=== PATIENT | female | born 1980 | race Caucasian/White ===

== ENCOUNTER 2016-09-12 14:35 | Emergency (ER) | payer OTHER ==
--- NOTE | 2016-09-12 18:38 | DIAGNOSTIC IMAGING REPORT ---
PROCEDURE: CT ABD/PELVIS WITH CONTRAST INDICATION: Abdominal pain and diarrhea. TECHNIQUE: 75 ml of Isovue 300 were injected intravenously and axial images were obtained of the entire abdomen and pelvis with sagittal and coronal reformations. (One half-dose contrast given due to borderline GFR 49). COMPARISON: Comparison made to CT abdomen pelvis on 10/18/2006. FINDINGS: ABDOMEN: Gallbladder, liver, spleen, pancreas, kidneys, and aorta are normal. Bowel pattern is normal, including appendix. PELVIS: Uterus and adnexal structures are normal. No evidence of free fluid. IMPRESSION: 1. Negative CT abdomen and pelvis. 2. Findings discussed with Dr. Serge Pickens. All CT scans at this facility use dose modulation, iterative reconstruction, and/or weight-based dosing when appropriate to reduce radiation dose to as low as reasonably achievable.
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
--- NOTE | 2016-09-12 18:59 | ED ORDER SUMMARY ---
..... Patient: FABRICE MARIA OrderSheet [facility] VisitID: [id number] [place] [address] 36y, F Registration Date/Time: 09/12/2016 ORDER SHEET Weight: 108.8 kg (stated) Allergies: Vicodin GENERAL ORDERS: CBC w Diff Urgent (15:09/12/2016 Dejah ALVARADO) (Ack 15:10 Vee) (15:39 MWinterer R.N.) CMP Urgent (15:09/12/2016 Dejah ALVARADO) (Ack 15:10 Vee) (15:39 MWinterer R.N.) UA-Culture if indicated Urgent (15:09/12/2016 Dejah ALVARADO) (Ack 15:10 Vee) (15:39 MWinterer R.N.) Amylase Urgent (15:09/12/2016 Dejah ALVARADO) (Ack 15:10 Vee) (15:39 MWinterer R.N.) Lipase Urgent (15:09/12/2016 Dejah ALVARADO) (Ack 15:11 Vee) (15:39 MWinterer R.N.) Urine Urgent (15:09/12/2016 Dejah ALVARADO) (Ack 15:11 Vee) (15:39 MWinterer R.N.) TSH Urgent (15:09/12/2016 Dejah ALVARADO) (Ack 15:16 Vee) (15:39 MWinterer R.N.) Urine Drug Screen Urgent (16:08 09/12/2016 Dejah ALVARADO) (Ack 16:23 Vee) (16:26 JBest R.N.) Blood Culture (No) (N/A) Urgent (16:11 09/12/2016 Dejah ALVARADO) (Ack 16:23 Vee) (16:26 JBest R.N.) Lactate, Serum Urgent (16:12 09/12/2016 Dejah ALVARADO) (Ack 16:23 Vee) (16:26 JBest R.N.) CT Abd/Pel w Cont (No) (See report) Urgent (17:29 09/12/2016 Dejah ALVARADO) (Ack 17:31 WIramon) (17:45 Tania R.N.) MEDICATION ORDERS: Phenergan IV 25 mg (HIGH ALERT MEDICATION, NOW) (16:09 09/12/2016 Dejah ALVARADO) (16:24 Tania R.N.) Phenergan IV 12.5 mg (HIGH ALERT MEDICATION, NOW) (18:52 09/12/2016 Dejah ALVARADO) (18:56 Tania R.N.) IV FLUIDS: IV Saline Lock (15:09 09/12/2016 Dejah ALVARADO) (15:40 Selena R.N.) Zofran IV 8 mg (NOW) (15:43 09/12/2016 Dejah ALVARADO) (15:47 Selena R.N.) IV NS : initial bolus 1000 mL (1000 mL/hr), then 150 mL/hr for 4h (NOW); Urgent (16:10 09/12/2016 Dejah ALVARADO) (16:25 Tania R.N.) Protonix IVP 40mg 40 mg (Mix in NS 10ml over 2min) (16:10 09/12/2016 Dejah ALVARADO) (16:26 Tania R.N.) ORDER SHEET NOTES: [Electronically signed by Srege Pickens MD (20:29 09/12/2016)] [Electronically signed by Joi Sands R.N. (05:57 09/13/2016)] [Electronically locked/signed by Joi Sands R.N. (05:57 09/13/2016)]
--- NOTE | 2016-09-12 18:59 | ED ORDER SUMMARY ---
..... Patient: FABRICE MARIA OrderSheet [facility] VisitID: [id number] [place] [address] 36y, F Registration Date/Time: 09/12/2016 ORDER SHEET Weight: 108.8 kg (stated) Allergies: Vicodin GENERAL ORDERS: CBC w Diff Urgent (15:09/12/2016 Dejah ALVARADO) (Ack 15:10 Vee) (15:39 MWinterer R.N.) CMP Urgent (15:09/12/2016 Dejah ALVARADO) (Ack 15:10 Vee) (15:39 MWinterer R.N.) UA-Culture if indicated Urgent (15:09/12/2016 Dejah ALVARADO) (Ack 15:10 Vee) (15:39 MWinterer R.N.) Amylase Urgent (15:09/12/2016 Dejah ALVARADO) (Ack 15:10 Vee) (15:39 MWinterer R.N.) Lipase Urgent (15:09/12/2016 Dejah ALVARADO) (Ack 15:11 Vee) (15:39 MWinterer R.N.) Urine Urgent (15:09/12/2016 Dejah ALVARADO) (Ack 15:11 Vee) (15:39 MWinterer R.N.) TSH Urgent (15:09/12/2016 Dejah ALVARADO) (Ack 15:16 Vee) (15:39 MWinterer R.N.) Urine Drug Screen Urgent (16:08 09/12/2016 Dejah ALVARADO) (Ack 16:23 Vee) (16:26 JBest R.N.) Blood Culture (No) (N/A) Urgent (16:11 09/12/2016 Dejah ALVARADO) (Ack 16:23 Vee) (16:26 JBest R.N.) Lactate, Serum Urgent (16:12 09/12/2016 Dejah ALVARADO) (Ack 16:23 Vee) (16:26 JBest R.N.) CT Abd/Pel w Cont (No) (See report) Urgent (17:29 09/12/2016 Dejah ALVARADO) (Ack 17:31 MSramon) (17:45 Tania R.N.) MEDICATION ORDERS: Phenergan IV 25 mg (HIGH ALERT MEDICATION, NOW) (16:09 09/12/2016 Dejah ALVARADO) (16:24 Tania R.N.) Phenergan IV 12.5 mg (HIGH ALERT MEDICATION, NOW) (18:52 09/12/2016 Dejah ALVARADO) (18:56 Tania R.N.) IV FLUIDS: IV Saline Lock (15:09 09/12/2016 Dejah ALVARADO) (15:40 Selena R.N.) Zofran IV 8 mg (NOW) (15:43 09/12/2016 Dejah ALVARADO) (15:47 Selena R.N.) IV NS : initial bolus 1000 mL (1000 mL/hr), then 150 mL/hr for 4h (NOW); Urgent (16:10 09/12/2016 Dejah ALVARADO) (16:25 Tania R.N.) Protonix IVP 40mg 40 mg (Mix in NS 10ml over 2min) (16:10 09/12/2016 Dejah ALVARADO) (16:26 Tania R.N.) ORDER SHEET NOTES: [Electronically signed by Serge Pickens MD (20:29 09/12/2016)] [Electronically signed by Joi Sands R.N. (05:57 09/13/2016)] [Electronically locked/signed by Joi Sands R.N. (05:57 09/13/2016)]
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
--- NOTE | 2016-09-13 05:57 | ED MAR SUMMARY ---
..... Medication Administration Record [facility] [address] [place] [place] [address] Patient: FABRICE MARIA Visit ID: [id number] 36y, F Weight: 108.8 kg Height/Length: 64 in BMI: 41.2 ALLERGIES: Vicodin Given 15:47 09/12/2016 Radha Kelly R.N. Medication Administered: ZOFRAN [IVP] (ONDANSETRON HCL), Dose: 8 mg IVP over 2 minute(s), Site: #1 right upper arm. Medication Ordered: Zofran IV 8 mg (NOW). Given 16:19 09/12/2016 Rosario Coleman R.N. Medication Administered: PHENERGAN [IVP] (PROMETHAZINE HCL), Dose: 25 mg IVP, Site: #1 right upper arm. Medication Ordered: Phenergan IV 25 mg (HIGH ALERT MEDICATION, NOW). Start 16:20 09/12/2016 Rosario Coleman R.N., Stop 19:11 09/12/2016 Rosario Coleman R.N. Medication Administered: IV NS (SALINE), Dose: IV Fluids over 1 hour(s), Rate: 1000 mL/hr, Dispensed: 1000 mL bag, Site: #1 right upper arm. Medication Ordered: IV NS : initial bolus 1000 mL (1000 mL/hr), then 150 mL/hr for 4h (NOW); Urgent. Given 16:21 09/12/2016 Rosario Coleman R.N. Medication Administered: PROTONIX [IVP] (PANTOPRAZOLE SODIUM), Dose: 40 mg IVP, Site: #1 right upper arm. Medication Ordered: Protonix IVP 40mg 40 mg (Mix in NS 10ml over 2min). Given 18:56 09/12/2016 Rosario Coleman R.N. Medication Administered: PHENERGAN [IVP] (PROMETHAZINE HCL), Dose: 12.5 mg IVP, Site: #1 right upper arm. Medication Ordered: Phenergan IV 12.5 mg (HIGH ALERT MEDICATION, NOW).
--- NOTE | 2016-09-13 05:57 | ED DISCHARGE INSTRUCTIONS ---
Patient: FABRICE MARIA General Instructions [facility] VisitID: [id number] [place] [address] 36y, F Registration Date/Time: 09/12/2016 Vomiting with nausea. Diarrhea Leukocytosis (likely due to de-margination from vomiting). INSTRUCTIONS No driving or operating machinery while taking medication. Sedative medication was given during your visit. Drink plenty of fluids. Warnings: Further evaluation is necessary. GENERAL WARNINGS: Return or contact your physician immediately if your condition worsens or changes unexpectedly, if not improving as expected, or if other problems arise. Your Current Medications: CONTINUE TAKING THE FOLLOWING MEDICATIONS: Zoloft Oral : 100 mg daily. Zofran Oral. Prescription Medications: Phenergan suppositories 25 mg: Insert 1 rectally every 4 to 6 hours as needed for nausea or vomiting. Dispense ten (10). No refills. Substitution is permissible. Follow-up: Follow up with your doctor ALVINO Porter tomorrow. Call for an appointment. Understanding of the discharge instructions verbalized by patient. ADDITIONAL INFORMATION Vomiting [6Yr-Adult] Vomiting is a common symptom that may be due to different causes. These include gastroenteritis ("stomach flu"), food poisoning and gastritis. There are other more serious causes of vomiting which may be hard to diagnose early in the illness. Therefore, it is important to watch for the warning signs listed below. The main danger from repeated vomiting is dehydration. This is due to excess loss of water and minerals from the body. When this occurs, body fluids must be replaced. Home Care: If symptoms are severe, rest at home for the next 24 hours. You may use acetaminophen (Tylenol) or ibuprofen (Motrin, Advil) to control fever, unless another medicine was prescribed. [NOTE : If you have chronic liver or kidney disease or ever had a stomach ulcer or GI bleeding, talk with your doctor before using these medicines.] (Aspirin should never be used in anyone under 18 years of age who is ill with a fever. It may cause severe liver damage.) Avoid tobacco and alcohol use, which may worsen your symptoms. If medicines for vomiting were prescribed, take as directed. Once vomiting stops, then follow these guidelines: During The First 12-24 Hours follow the diet below: FRUIT JUICES: Apple, grape juice, clear fruit drinks, and electrolyte replacement drinks. BEVERAGES: Soft drinks without caffeine; mineral water (plain or flavored), decaffeinated tea and coffee. SOUPS: Clear broth, consomm and bouillon DESSERTS: Plain gelatin, popsicles and fruit juice bars. As you feel better, you may add 6-8 ounces of yogurt per day. During The Next 24 Hours you may add the following to the above: Hot cereal, plain toast, bread, rolls, crackers Plain noodles, rice, mashed potatoes, chicken noodle or rice soup Unsweetened canned fruit (avoid pineapple), bananas Limit caffeine and chocolate. No spices or seasonings except salt. During The Next 24 Hours Gradually resume a normal diet, as you feel better and your symptoms lessen. Follow Up with your doctor as advised if you are not improving over the next 2-3 days. Get Prompt Medical Attention if any of the following occur: Constant right-sided lower abdominal pain or increasing general abdominal pain Continued vomiting (unable to keep liquids down) for 24 hours Frequent diarrhea (more than 5 times a day); blood (red or black color) or mucus in diarrhea Reduced urine output or extreme thirst Weakness, dizziness or fainting Unusually drowsy or confused Fever of 100.4F (38C) oral or higher, not better with fever medication Yellow color of the eyes or skin Diarrhea, Uncertain Cause (Adult, Report Pending) Diarrhea has several possible causes. Commonstomach fluis caused by a virus. Food poisoning, bacteria or parasites are other causes for diarrhea. Only diarrhea caused by bacteria or parasites requires treatment with an antibiotic. Diarrhea from a virus or food poisoning improves with simple home treatment. A stool sample is needed to make the diagnosis of an infection with bacteria or parasites. Up to three stool specimens may be required to diagnose This may take up to two days to get the result. It may be necessary to wait until the stool test is complete to make the diagnosis and select the best antibiotic to prescribe. Home Care: If symptoms are severe, rest at home for the next 24 hours or until you are feeling better. You may use acetaminophen (Tylenol) or ibuprofen (Motrin, Advil) to control fever, unless another medicine was prescribed. [NOTE: If you have chronic liver or kidney disease or ever had a stomach ulcer or GI bleeding, talk with your doctor before using these medicines.] (Aspirin should never be used in anyone under 18 years of age who is ill with a fever. It may cause severe liver damage.) Avoid tobacco, caffeine and alcohol, which may worsen your symptoms. If anti-diarrhea medicine was prescribed, take this only as directed. Sometimes anti-diarrhea medicine can make your condition worse if the cause is an infectious diarrhea. Therefore, anti-diarrhea medicine should not be taken for this condition unless advised by your doctor. During The First 12-24 Hours follow the diet below: BEVERAGES: Sport drinks like Gatorade, soft drinks without caffeine; siva bakari, mineral water (plain or flavored), decaffeinated tea and coffee. SOUPS: Clear broth, consomm and bouillon DESSERTS: Plain gelatin (Jell-O), popsicles and fruit juice bars. During The Next 24 Hours you may add the following to the above: Hot cereal, plain toast, bread, rolls, crackers Plain noodles, rice, mashed potatoes, chicken noodle or rice soup Unsweetened canned fruit (avoid pineapple), bananas Limit fat intake to less than 15 grams per day by avoiding margarine, butter, oils, mayonnaise, sauces, gravies, fried foods, peanut butter, meat, poultry and fish. Limit fiber; avoid raw or cooked vegetables, fresh fruits (except bananas) and bran cereals. Limit caffeine and chocolate. No spices or seasonings except salt. During The Next 24 Hours Gradually resume a normal diet, as you feel better and your symptoms lessen. Follow Up with your doctor or as advised if you are not improving over the next two days. If you were asked to bring a specimen from home, bring the sample on the day of collection. You may call in 2 days (or as directed) for the results. Get Prompt Medical Attention if any of the following occur: Increasing abdominal pain or constant lower right abdominal pain Continued vomiting (unable to keep liquids down) Frequent diarrhea (more than 5 times a day) Blood in vomit or stool (black or red color) Reduced oral intake Dark urine, reduced urine output Weakness, dizziness, fainting Drowsiness, confusion, stiff neck or seizure Fever of 100.4F (38C) oral or higher, not better with fever medication New rash Promethazine Hydrochloride Rectal suppository What is this medicine? PROMETHAZINE (proe METH a zeen) is an antihistamine. It is used to treat allergic reactions and to treat or prevent nausea and vomiting from illness or motion sickness. It is also used to make you sleep before surgery, and to help treat pain or nausea after surgery. How should I use this medicine? This medicine is for rectal use only. Do not take by mouth. Wash your hands before and after use. Take off the foil wrapping. Wet the tip of the suppository with cold tap water to make it easier to use. Lie on your side with your lower leg straightened out and your upper leg bent forward toward your stomach. Lift upper buttock to expose the rectal area. Apply gentle pressure to insert the suppository completely into the rectum, pointed end first. Hold buttocks together for a few seconds. Remain lying down for about 15 minutes to avoid having the suppository come out. Do not use more often than directed. Talk to your shell trim tool setter regarding the use of this medicine in children. Special care may be needed. This medicine should not be given to infants and children younger than 2 years old. What side effects may I notice from receiving this medicine? Side effects that you should report to your doctor or health care transition coordinator as soon as possible: blurred vision irregular heartbeat, palpitations or chest pain muscle or facial twitches pain or difficulty passing urine seizures skin rash slowed or shallow breathing unusual bleeding or bruising yellowing of the eyes or skin Side effects that usually do not require medical attention (report to your doctor or health care transition coordinator if they continue or are bothersome): headache nightmares, agitation, nervousness, excitability, not able to sleep (these are more likely in children) stuffy nose What may interact with this medicine? Do not take this medicine with any of the following medications: medicines called MAO Inhibitors like Nardil, Parnate, Marplan, Eldepryl other phenothiazines like trimethobenzamide This medicine may also interact with the following medications: barbiturates such as phenobarbital bromocriptine certain antidepressants certain antihistamines used in allergy or cold medicines epinephrine levodopa medicines for sleep medicines for mental problems and psychotic disturbances medicines for movement abnormalities as in Parkinson's disease, or for gastrointestinal problems muscle relaxants prescription pain medicines What if I miss a dose? If you miss a dose, use it as soon as you can. If it is almost time for your next dose, use only that dose. Do not use double doses. Where should I keep my medicine? Keep out of the reach of children. Store in a refrigerator between 2 and 8 degrees C (36 and 46 degrees F). Throw away any unused medicine after the expiration date. What should I tell my health care provider before I take this medicine? They need to know if you have any of these conditions: glaucoma high blood pressure or heart disease kidney disease liver disease lung or breathing disease, like asthma prostate trouble pain or difficulty passing urine seizures an unusual or allergic reaction to promethazine or phenothiazines, other medicines, foods, dyes, or preservatives or trying to get breast-feeding What should I watch for while using this medicine? Tell your doctor or health care transition coordinator if your symptoms do not start to get better in 1 to 2 days. You may get drowsy or dizzy. Do not drive, use machinery, or do anything that needs mental alertness until you know how this medicine affects you. To reduce the risk of dizzy or fainting spells, do not stand or sit up quickly, especially if you are an older patient. Alcohol may increase dizziness and drowsiness. Avoid alcoholic drinks. Your mouth may get dry. Chewing sugarless gum or sucking hard candy, and drinking plenty of water may help. Contact your doctor if the problem does not go away or is severe. This medicine may cause dry eyes and blurred vision. If you wear contact lenses you may feel some discomfort. Lubricating drops may help. See your eye doctor if the problem does not go away or is severe. This medicine can make you more sensitive to the sun. Keep out of the sun. If you cannot avoid being in the sun, wear protective clothing and use sunscreen. Do not use sun lamps or tanning beds/booths. If you are diabetic, check your blood-sugar levels regularly. You have been given the following additional information: Vomiting (6Y-Adult) Diarrhea, Unk Cause (Adult) Report Pendg Promethazine Hydrochloride Rectal suppository No driving or operating machinery while taking medication. Sedative medication was given during your visit. (Electronically signed by Serge Pickens MD 09/12/2016 20:29)
--- NOTE | 2016-09-13 05:57 | ED MAR SUMMARY ---
..... Medication Administration Record [facility] [address] [place] [address] Patient: FABRICE MARIA Visit ID: [id number] 36y, F Weight: 108.8 kg Height/Length: 64 in BMI: 41.2 ALLERGIES: Vicodin Given 15:47 09/12/2016 Radha Kelly R.N. Medication Administered: ZOFRAN [IVP] (ONDANSETRON HCL), Dose: 8 mg IVP over 2 minute(s), Site: #1 right upper arm. Medication Ordered: Zofran IV 8 mg (NOW). Given 16:19 09/12/2016 Rosario Coleman R.N. Medication Administered: PHENERGAN [IVP] (PROMETHAZINE HCL), Dose: 25 mg IVP, Site: #1 right upper arm. Medication Ordered: Phenergan IV 25 mg (HIGH ALERT MEDICATION, NOW). Start 16:20 09/12/2016 Rosario Coleman R.N., Stop 19:11 09/12/2016 Rosario Coleman R.N. Medication Administered: IV NS (SALINE), Dose: IV Fluids over 1 hour(s), Rate: 1000 mL/hr, Dispensed: 1000 mL bag, Site: #1 right upper arm. Medication Ordered: IV NS : initial bolus 1000 mL (1000 mL/hr), then 150 mL/hr for 4h (NOW); Urgent. Given 16:21 09/12/2016 Rosario Coleman R.N. Medication Administered: PROTONIX [IVP] (PANTOPRAZOLE SODIUM), Dose: 40 mg IVP, Site: #1 right upper arm. Medication Ordered: Protonix IVP 40mg 40 mg (Mix in NS 10ml over 2min). Given 18:56 09/12/2016 Rosario Coleman R.N. Medication Administered: PHENERGAN [IVP] (PROMETHAZINE HCL), Dose: 12.5 mg IVP, Site: #1 right upper arm. Medication Ordered: Phenergan IV 12.5 mg (HIGH ALERT MEDICATION, NOW).
--- NOTE | 2016-09-13 05:57 | ED MED RECONCILIATION SUMMARY ---
Patient: FABRICE MARIA Medication Reconciliation Report [facility] VisitID: [id number] [address] [place] [address] 36y, F Registration Date/Time: 09/12/2016 Weight: 108.8 kg Height/Length: 64 in. BMI: 41.2 ALLERGIES: Vicodin The patient's Home Medications are listed below: CONTINUE TAKING THE FOLLOWING MEDICATIONS: Zofran Oral Zoloft Oral 100 mg, daily The source(s) of the original Home Medication information: Not obtained. The following Medications were given to the patient in the Emergency Department: Zofran [IVP] IVP 8 mg, administered: 09/12/2016 3:47:00 PM PHENERGAN [IVP] IVP 25 mg, administered: 09/12/2016 4:19:00 PM IV NS IV Fluids bolus 0, then 1000 mL/hr, administered: 09/12/2016 4:20:00 PM PROTONIX [IVP] IVP 40 mg, administered: 09/12/2016 4:21:00 PM PHENERGAN [IVP] IVP 12.5 mg, administered: 09/12/2016 6:56:00 PM The following Medications were prescribed to the patient: Phenergan suppositories 25 mg: Insert 1 rectally every 4 to 6 hours as needed for nausea or vomiting. Dispense ten (10). No refills. Substitution is permissible. -- Serge Pickens MD
--- NOTE | 2016-09-13 05:57 | ED MED RECONCILIATION SUMMARY ---
Patient: FABRICE MARIA Medication Reconciliation Report [facility] VisitID: [id number] [address] [place] [address] 36y, F Registration Date/Time: 09/12/2016 Weight: 108.8 kg Height/Length: 64 in. BMI: 41.2 ALLERGIES: Vicodin The patient's Home Medications are listed below: CONTINUE TAKING THE FOLLOWING MEDICATIONS: Zofran Oral Zoloft Oral 100 mg, daily The source(s) of the original Home Medication information: Not obtained. The following Medications were given to the patient in the Emergency Department: Zofran [IVP] IVP 8 mg, administered: 09/12/2016 3:47:00 PM PHENERGAN [IVP] IVP 25 mg, administered: 09/12/2016 4:19:00 PM IV NS IV Fluids bolus 0, then 1000 mL/hr, administered: 09/12/2016 4:20:00 PM PROTONIX [IVP] IVP 40 mg, administered: 09/12/2016 4:21:00 PM PHENERGAN [IVP] IVP 12.5 mg, administered: 09/12/2016 6:56:00 PM The following Medications were prescribed to the patient: Phenergan suppositories 25 mg: Insert 1 rectally every 4 to 6 hours as needed for nausea or vomiting. Dispense ten (10). No refills. Substitution is permissible. -- Serge Pickens MD
== END 2016-09-12 19:16 | disposition home or self-care (01) ==
LOC: ED SRH 14:35
DX: R11.2 Nausea with vomiting, unspecified (principal); R19.7 Diarrhea, unspecified; D72.829 Elevated white blood cell count, unspecified; E07.9 Disorder of thyroid, unspecified; Z79.899 Other long term (current) drug therapy
CPT/HCPCS: 90004; 90065; 90100; 90469; 92031; 92235; 92530; 92760; 92761; 92762; 92763; 92764; 92765; 92766; 92767; 93070; 93140; 95059